=== PATIENT | female | born 1985 | race Caucasian/White ===

== ENCOUNTER 2020-04-12 01:36 | Emergency (ER) | payer SELFPAY ==
[~2020-04-12] VITALS: Ht 162.6 cm; Wt 66.0 kg
[2020-04-12 01:40] VITALS: BP 131/84
== END 2020-04-12 02:32 | disposition home or self-care (01) ==
LOC: ED 02:30
DX: L03.123 Acute lymphangitis of right upper limb (principal); F17.210 Nicotine dependence, cigarettes, uncomplicated
CPT/HCPCS: 99283; 99406